=== PATIENT | male | born 1985 | race Caucasian/White ===

== ENCOUNTER 2017-10-22 10:32 | Inpatient (IN) | payer MEDICAID ==
[~2017-10-22] VITALS: Ht 182.9 cm; Wt 81.4 kg
[2017-10-22] MEDS ORDERED: HALOPERIDOL LACTATE 5 MG/ML VIAL IM ONE (11:15)
[2017-10-22] MEDS ORDERED: LORazepam 2 MG/ML VIAL IM ONE (11:15)
[2017-10-22] MEDS ORDERED: DiphenhydrAMINE HCL 50 MG/ML VIAL IM ONE (11:15)
[2017-10-22 11:43] LABS: BASOPHILS # (AUTO) 0.02 K/uL (0.00-0.20); BASOPHILS % (AUTO) 0.2 % (0.0-2.0); EOSINOPHILS # (AUTO) 0.25 K/uL (0.00-0.70); EOSINOPHILS % (AUTO) 2.35 % (1.0-6.0); HEMOGLOBIN 15.5 g/dL (13.5-17.5); LYMPHOCYTES # (AUTO) 1.4 K/uL (1.0-4.8); LYMPHOCYTES % (AUTO) 12.9 % (22.0-44.0); MEAN CORPUSCULAR HEMOGLOBIN 31.1 pg (26.0-34.0); MEAN CORPUSCULAR HGB CONC 34.5 G/dL (31.0-37.0); MEAN CORPUSCULAR VOLUME 90 fL (80-100); MONOCYTES # (AUTO) 0.7 K/uL (0.1-1.0); MONOCYTES % (AUTO) 6.4 % (2.0-9.0); NEUTROPHILS # (AUTO) 8.3 K/uL (1.8-7.7); NEUTROPHILS % (AUTO) 78.2 % (40.0-70.0); PLATELET COUNT (AUTO) 280 K/uL (150-450); RED BLOOD CELL COUNT(AUTO) 4.99 MIL/uL (4.50-5.90); RED CELL DISTRIBUTION WIDTH 13.4 % (11.5-14.5)
[2017-10-22 11:48] LABS: AMPHET/METH SCREEN,URINE NEGATIVE (NEGATIVE); BARBITURATE SCREEN, URINE NEGATIVE (NEGATIVE); BENZODIAZEPINES SCREEN,URINE NEGATIVE (NEGATIVE); CANNABINOID SCREEN,URINE POSITIVE (NEGATIVE); COCAINE SCREEN,URINE NEGATIVE (NEGATIVE); METHADONE SCREEN, URINE NEGATIVE (NEGATIVE); OPIATE SCREEN,URINE NEGATIVE (NEGATIVE); PHENCYCLIDINE SCREEN,URINE NEGATIVE (NEGATIVE)
[2017-10-22 11:51] LABS: ANION GAP 8 mmol/L (8-16); CALCIUM, TOTAL 9.3 mg/dL (8.8-10.5); CARBON DIOXIDE 29 mmol/L (22-29); CHLORIDE 100 mmol/L (98-107); GLOMERULAR FILTR. RATE CALC > 60 mL/min (>60); GLUCOSE,RANDOM 110 mg/dL (70-110); POTASSIUM 3.5 mmol/L (3.5-5.1); SODIUM SERUM 137 mmol/L (136-145); UREA NITROGEN, BLOOD 14 mg/dL (7-18)
[2017-10-22 11:57] LABS: ALANINE AMINOTRANSFERASE 73 U/L (12-78); ALBUMIN 4.4 g/dL (3.4-5.0); ALKALINE PHOSPHATASE 131 U/L (46-116); ASPARTATE AMINOTRANSFERASE 41 U/L (15-37); TOTAL PROTEIN, SERUM 8.1 g/dL (6.4-8.2)
[2017-10-22] MEDS ORDERED: ZOLPIDEM TARTRATE 10 MG TABLET PO PRN (13:15)
[2017-10-22 14:15] VITALS: BP 135/74
[2017-10-22 18:30] VITALS: BP 138/76
[2017-10-23 03:32] VITALS: BP 131/80
[2017-10-23 08:42] LABS: CHOL/HDL RATIO 2.5 (4.2-7.3)
[2017-10-23 09:13] VITALS: BP 158/68
[2017-10-23] MEDS ORDERED: CloNIDine HCL 0.1 MG TABLET PO PRN (13:45)
[2017-10-23 16:13] VITALS: BP 144/83
[2017-10-23] MEDS: LORazepam 2 MG TABLET PO PRN (16:38)
[2017-10-23] MEDS ORDERED: QUEtiapine FUMARATE 25 MG TABLET PO SCH (21:00)
[2017-10-24 03:00] VITALS: BP 127/95
[2017-10-24] MEDS: LORazepam 2 MG TABLET PO PRN ×3 (04:57→16:03)
[2017-10-24 08:32] VITALS: BP 132/88
[2017-10-24] MEDS: HALOPERIDOL 5 MG TABLET PO PRN ×2 (09:03→17:00)
[2017-10-24 16:06] VITALS: BP 133/79
[2017-10-25 01:48] VITALS: BP 119/71
[2017-10-25] MEDS: LORazepam 2 MG TABLET PO PRN (04:53)
[2017-10-25 04:58] VITALS: BP 124/68
[2017-10-25] MEDS ORDERED: IBUPROFEN 400 MG TABLET PO PRN ×2 (06:30→07:15)
[2017-10-25] MEDS ORDERED: ACETAMINOPHEN 325 MG TABLET PO PRN ×2 (06:30→07:15)
[2017-10-25 08:43] VITALS: BP 130/84
[2017-10-25] MEDS ORDERED: ARIPiprazole 10 MG TABLET PO SCH (09:00)
[2017-10-25 10:25] LABS: FOLATE SERUM 11.3 ng/mL (5.4-)
[2017-10-25] MEDS ORDERED: ARIP15TA2 PO (11:35)
== END 2017-10-25 13:45 | disposition home or self-care (01) | DRG 750 ==
LOC: EMS 10:33 → AHU 13:16 → B2S 18:01
PROVIDERS: ADMIT Psychiatry & Neurology Child & Adolescent Psychiatry; ATTEND Psychiatry & Neurology Child & Adolescent Psychiatry
DX: F20.9 Schizophrenia, unspecified (principal); I10 Essential (primary) hypertension; F41.9 Anxiety disorder, unspecified; F31.9 Bipolar disorder, unspecified; F12.10 Cannabis abuse, uncomplicated; K64.9 Unspecified hemorrhoids; F10.20 Alcohol dependence, uncomplicated
CPT/HCPCS: 82607; 82746; 96372; 99285; G0480; J1200; J1630; J2060